=== PATIENT | female | born 2000 | race Two or more races ===

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

== ENCOUNTER 2020-09-26 07:25 | Inpatient (IN) | payer OTHER ==
[~2020-09-26] VITALS: Ht 165.1 cm; Wt 95.0 kg
[~2020-09-26 07:25] MED LIST: IBUP-1222 PO; PREN1TAB60 PO
[2020-09-26 07:41] VITALS: BP 135/78
[2020-09-26] MEDS ORDERED: OXYTOCIN 30U/ 0.9% NaCL 500ML 500 ML IV ONE (10:00)
[2020-09-26] MEDS ORDERED: TERBUTALINE 1 MG/ML, 1ML SQ PRN (10:00)
[2020-09-26] MEDS ORDERED: ONDANSETRON 2MG/ML, 2ML IVPush PRN (10:00)
[2020-09-26] MEDS ORDERED: FENTANYL PF 100 MCG/2ML IV PRN (10:00)
[2020-09-26] MEDS ORDERED: CALCIUM CARBONATE 500 MG TAB.CHEW PO PRN (10:00)
[2020-09-26] MEDS ORDERED: D5%-LACTATED RINGERS 1,000 ML IV SCH (10:00)
[2020-09-26] MEDS ORDERED: LACTATED RINGERS 1,000 ML IV SCH ×2 (10:00→12:00)
[2020-09-26] MEDS ORDERED: TERBUTALINE 1 MG/ML, 1ML IVPush PRN (10:00)
[2020-09-26 10:06] LABS: BASOPHILS % (AUTO) 0 % (0-1); EOSINOPHILS % (AUTO) 0 % (1-7); LYMPHOCYTES % (AUTO) 14 % (22-44); MEAN CORPUSCULAR HEMOGLOBIN 28.3 pg (27.0-34.8); MEAN CORPUSCULAR HGB CONC 33.4 g/dL (32.4-35.8); MEAN PLATELET VOLUME 8.6 fL (7.4-10.4); MONOCYTES % (AUTO) 5 % (2-9); NEUTROPHILS % (AUTO) 81 % (42-75); PLATELET COUNT 198 x10^3/uL (130-400); RED BLOOD COUNT 4.37 x10^6/uL (3.82-5.3); RED CELL DISTRIBUTION WIDTH 14.5 % (9.6-15.2)
[2020-09-26] MEDS ORDERED: NEWBORN KIT ONE (10:18)
[2020-09-26] MEDS ORDERED: MISOPROSTOL 200 MCG TABLET ONE (10:19)
[2020-09-26] MEDS ORDERED: LIDOCAINE 1%, 20ML ONE (10:19)
[2020-09-26] MEDS: FENTANYL PF 100 MCG/2ML IVPush PRN ×2 (10:31→11:36)
[2020-09-26] MEDS ORDERED: BUPIVACAINE 0.25% ONE (11:52)
[2020-09-26] MEDS ORDERED: NALOXONE 0.4 MG/ML, 1ML IVPush PRN (12:00)
[2020-09-26] MEDS ORDERED: FENTANYL/BUPIV./NS/PF 250 ML EPIDCONT SCH (12:00)
[2020-09-26] MEDS ORDERED: EPHEDRINE 50 MG/ML, 1ML IVPush PRN (12:00)
[2020-09-26] MEDS ORDERED: LACTATED RINGERS 1,000 ML IVBOLUS PRN (12:00)
[2020-09-26] MEDS ORDERED: DOCUSATE 100 MG CAPSULE PO PRN (13:30)
[2020-09-26] MEDS ORDERED: SIMETHICONE 80 MG CHEW TAB PO PRN (13:30)
[2020-09-26] MEDS: OXYTOCIN 30U/ 0.9% NaCL 500ML 500 ML IV SCH ×2 (14:00→23:30)
[2020-09-26 16:00] VITALS: BP 109/72
[2020-09-26 19:23] VITALS: BP 120/84
[2020-09-27] VITALS: BP 125/81
[2020-09-27] MEDS ORDERED: HYDROcodone/APAP 5/325 TABLET ONE (00:52)
[2020-09-27] MEDS ORDERED: IBUPROFEN 800 MG TABLET ONE (00:53)
[2020-09-27] MEDS ORDERED: HYDROcodone/APAP 5/325 TABLET PO PRN (01:00)
[2020-09-27] MEDS ORDERED: IBUPROFEN 200 MG TABLET PO PRN (01:00)
[2020-09-27 04:28] VITALS: BP 109/71
[2020-09-27] MEDS ORDERED: PRENATAL VIT/IRON/FA 1 EACH TABLET PO SCH (09:00)
[2020-09-27] MEDS: OXYTOCIN 30U/ 0.9% NaCL 500ML 500 ML IV SCH (09:30)
== END 2020-09-27 14:30 | disposition home or self-care (01) | DRG 807 ==
LOC: LDOP 07:25 → MERGE 09:51 → LDIP 09:51 → 2NW 15:15
PROVIDERS: ADMIT Obstetrics & Gynecology; ATTEND Obstetrics & Gynecology
PROC: 10E0XZZ Delivery of Products of Conception, External Approach (ICD-10-PCS; principal; 2020-09-26)
DX: O80 Encounter for full-term uncomplicated delivery (principal); Z37.0 Single live birth; Z3A.38 38 weeks gestation of pregnancy; Z20.822 Contact with and (suspected) exposure to COVID-19
CPT/HCPCS: 36415; 85025; 86592; 86850; 86900; 87635; G0378; J3010; J2590; J7120